=== PATIENT | male | born 1950 | race Caucasian/White ===

== ENCOUNTER 2016-07-02 09:44 | Day surgery (SDC) | payer OTHER ==
[~2016-07-02] VITALS: Ht 176.5 cm; Wt 102.5 kg
[~2016-07-02 09:44] MED LIST: ACAR25TA2 PO; ALBU6.7H INH; ALFU10TA11 PO; ASPI500T15 PO; BUPR100T15 PO; GABA-500 PO; GLIP5POW MC; HYDR-4003 PO; IBUP-1827 PO; LISI10TA PO; METF850T2 PO; OMEP20CA11 PO; SILD100T PO; SIMV10TA4 PO; Sodium Chloride LOK Flush 10 mL Syringe IV PRN; TAMS0.4C29 PO; TRAZ-118 PO; fentaNYL-PF 50 mCg/mL 2 mL Inj IVPUSH PRN
[2016-07-02 10:25] VITALS: BP 126/74; PULSE 56; RESP 16; O2SAT 96
[2016-07-02] MEDS: 0.9% Sodium Chloride 1,000 ML IV PRN ×2 (11:41→12:16)
--- NOTE | 2016-07-02 11:58 | PCM.ENDEGD ---
EGD Date of Service: Jul 02, 2016 Physician Toro Lopez MD Indication for Procedure Reflux Post Procedure Dx & Findings: Gastritis esophagitis prominent duodenal fold Procedure Esophagogastroduodenoscopy PROCEDURE IN DETAIL: The patient was placed in left lateral decubitus position. Bite block was placed. Scope lubricated, placed in posterior pharynx, passed through the cricopharyngeus and esophagus, slowly advanced the entire length of the gastric pouch, pylorus was identified, scope passed through the pylorus and descending portion of duodenum, withdrawn in the antrum, retroflexed upon itself for view of fundus and cardia. Scope was then withdrawn through the oropharynx. Esophagus was unremarkable except for the regular Z line which was biopsied with a cold forcep. Stomach showed mildly irritated atrophic redness consistent with with gastritis in the fundus body antrum. Cardia and pylorus seemed unremarkable. Retroflexion was done. Stomach was easily inflatable in deflatable using air. In the duodenum, the duodenal mucosa showed normal healthy villous structure and folds except there was a 2 cm fold that seemed a little bit prominent. It was biopsied. Impression Irregular Z line Gastritis Prominent duodenal fold Recommendation Await biopsy Continue acid suppression. Presedation Assessment Risks and Benefits Informed consent was obtained from the patient after all risks and benefits including but not limited to drug reaction, infection, pain, bleeding, perforation, as well as alternatives were discussed. Patient monitoring Continuous pulse oximetry, cardiac monitoring, blood pressure monitoring, IV access, and oxygen at 2L per nasal cannula. Periprocedural Fentanyl: Fentanyl 100mcg Incrementally Midazolam: Midazolam 4mg Incrementally Complications There were no periprocedural complications identified. Post Procedure Plan Post Procedure Recommendations 1. Restrict activities today. 2. Resume normal activities in the morning. 3. Resume medications. 4. GERD behavioral modification: - Avoid fatty, acidic, spicy, large meals - Do not lie down after meals - Do not eat or drink anything for at least 2 1/2 hours before going to bed at night - Discontinue tobacco and alcohol - Decrease or avoid caffeine - Avoid chocolate and mints - Decrease weight - Avoid aspirin and non steroidal anti-inflammatory agents (NSAID) such as Aleve, Advil, Mobic, Naproxen, Ibuprofen, etc 5. Add proton pump inhibitor. Take 30 minutes before 1st meal of the day. 6. Patient informed of normal post procedure side effects as bloating, drowsiness, blood streaking in the stool 7. If gastric biopsy reveal H.pylori, continue with appropriate treatment 8. If small bowel biopsy reveals celiac, continue with appropriate treatment 9. Please don't hesitate to call me with any questions Toro Lopez MD Jul 02, 2016 11:58
--- NOTE | 2016-07-02 12:23 | PCM.ENDCOL ---
Colonoscopy Date of Service: Jul 02, 2016 Physician Toro Lopez MD Indication for Procedure Worsening constipation Post Procedure Dx & Findings: Polyps fair prep Procedure Colonoscopy Prep fair Cecum 5 minutes Withdrawal 15 minutes PROCEDURE IN DETAIL: After unremarkable rectal examination Olympus video colonoscope was inserted into patient's anal canal was advanced to cecum. Landmarks identified including the ileocecal valve and appendiceal orifice. Scope was withdrawn systematically. The mucosa of the cecum, ascending, transverse, descending, sigmoid, rectal mucosa lined with whitish, pink, smooth, glistening, normal-appearing mucosa, normal fine branching, underlying vascularity, normal haustra. The patient tolerated procedure and was transported to observation area. In the ascending colon, there was a 1 mm polyp which was resected completely with cold forceps. In the transverse colon, there was a 1 mm polyp which was resected completely using cold forceps. In the descending colon there was another 1 mm polyp which was resected completely using cold forceps. In the sigmoid colon, there was a 3 mm polyp which was resected completely using cold snare. Rectum retroflexion was done which showed hemorrhoids and a canal was inspected carefully and the way out and hemorrhoids noted. Impression Polyp 4 status post complete removal Fair prep Hemorrhoids Recommendation Repeat colonoscopy in 3 years using 2 days of clears. Presedation Assessment Risks and Benefits Informed consent was obtained from the patient after all risks and benefits including but not limited to drug reaction, infection, pain, bleeding, perforation, as well as alternatives were discussed. Patient monitoring Continuous pulse oximetry, cardiac monitoring, blood pressure monitoring, IV access, and oxygen at 2L per nasal cannula. Periprocedural Midazolam: Midazolam 1mg Incrementally Complications There were no periprocedural complications identified. Post Procedure Plan Post Procedure Recommendations 1. Restrict activities today. 2. Resume normal activities in the morning. 3. Resume medications. 4. Patient informed of normal post procedure side effects as bloating, drowsiness, blood streaking in the stool. 5. average risk CRCS. If colon polyps come back as: -Hyperplastic- can repeat colonoscopy in 10 years -Tubular adenoma- repeat colonoscopy in 5 years -Tubulovillous/villous adenoma- repeat colonoscopy in 3 years -If any dysplasia- return to clinic as soon as possible 6. Please don't hesitate to call me with any questions. Toro Lopez MD Jul 02, 2016 12:23
[2016-07-02 12:25] VITALS: BP 141/78; PULSE 52; RESP 16; O2SAT 93
[2016-07-02 12:35] VITALS: BP 126/80; PULSE 51; RESP 16; O2SAT 94
[2016-07-02 12:45] VITALS: BP 116/83; PULSE 53; RESP 16; O2SAT 95
[2016-07-02 13:55] VITALS: BP 163/80; PULSE 78; RESP 16; O2SAT 98
--- NOTE | 2016-07-03 12:13 | PATH ---
SURGICAL PATHOLOGY Attending Physician:Toro Lopez M.D. CASE STATUS: Signed Out PATIENT NAME: MAYE LUEVANO PID: [id number] : 1950 DATE COLLECTED:07/02/2016 20:20 SPECIMEN: 1: Duodenum, Biopsy 2: Gastric, Biopsy 3: Esophagus, Biopsy 4: Colon, Biopsy 5: Colon, Biopsy 6: Colon, Biopsy 7: Colon, Biopsy CLINICAL HISTORY: 1. DUODENUM FOLD BIOPSY 2. GASTRIC BIOPSY 3. GE JUNCTION BIOPSY 4. SIGMOID COLON POLYP 5. ASCENDING COLON POLYP 6. TRANSVERSE COLON POLYP 7. DESCENDING COLON POLYP FINAL DIAGNOSIS: 1. Duodenum Fold Biopsy: Small fragment of normal appearing small bowel. Normal delicate mucosal villi present. Negative for significant inflammation, dysplasia and malignancy. 2. Gastric Biopsy: Diffuse moderate chronic gastritis involving antral and fundic mucosa. Immunohistochemistry for Helicobacter pending, to be reported by addendum. Negative for intestinal metaplasia. Negative for dysplasia and malignancy. 3. Gastroesophageal Junction Biopsy: Squamous mucosa and gastric cardia-type mucosa with mild chronic inflammation. Negative for specialized metaplasia of Jaeger's type esophagus. Negative for dysplasia and malignancy. Eosinophils are not increased. 4. Sigmoid Colon Polyp: Tubular adenoma. 5. Ascending Colon Polyp: Polypoid-shaped fragment of colon mucosa consistent with mucosal polypoid redundancy. Negative for dysplasia and malignancy. 6. Transverse Colon Polyp: Tubular adenoma. 7. Descending Colon Polyp: Polypoid-shaped fragment of colon mucosa consistent with mucosal polypoid redundancy. Negative for dysplasia and malignancy. ICD10 K29.70 GROSS DESCRIPTION: The specimen is received in seven formalin filled containers labeled with the patient's name. 1). The specimen is sublabeled "duodenal fold" and consists of a 0.2 x 0.2 x 0.2 CM portion of tissue which is entirely submitted in cassette 1A. 2). The specimen is sublabeled "gastric" and consists of 2 portions of tissue which aggregate to 0.3 x 0.2 x 0.2 CM. The specimen is entirely submitted in cassette 2A. 3). The specimen is sublabeled "GE junction" and consists of a 0.2 x 0.2 x 0.2 CM portion of tissue which is entirely submitted in cassettes 3A. 4). The specimen is sublabeled "sigmoid colon polyp" and consists of a 0.4 x 0.3 x 0.3 CM portion of tissue which is entirely submitted in cassette 4A. 5). The specimen is sublabeled "ascending colon polyp" and consists of a 0.2 x 0.2 x 0.1 CM portion of tissue which is entirely submitted in cassette 5A. 6). The specimen is sublabeled "transverse colon polyp" and consists of a 0.3 x 0.3 x 0.3 CM portion of tissue which is entirely submitted in cassette 6A. 7). The specimen is sublabeled "descending colon polyp" and consists of a 0.5 x 0.3 x 0.3 CM portion of tissue which is entirely submitted in cassette 7A. 07/02/2016 [facility] ICD-9 CODES: CPT CODES: 1: 04055 2: 91090, 16683 3: 08489 4: 05562 5: 89409 6: 55686 7: 67213 PROCEDURE/ADDENDA: Immunohistochemistry SPI Interpretation 2. Gastric Biopsy: Negative for Helicobacter pylori by immunohistochemistry. Results-Comments {Not Entered} Electronically Signed Out Allan Munoz MD Electronically Signed Out Allan Munoz MD [facility] [address] [place] [address] Technical component performed at [facility], [address], [place], [address]
== END 2016-07-02 23:59 | disposition home or self-care (01) ==
LOC: END 09:44
PROVIDERS: ATTEND Internal Medicine
DX: D12.5 Benign neoplasm of sigmoid colon (principal); D12.3 Benign neoplasm of transverse colon; K63.5 Polyp of colon; K64.9 Unspecified hemorrhoids; K29.50 Unspecified chronic gastritis without bleeding; E11.9 Type 2 diabetes mellitus without complications; K21.0 Gastro-esophageal reflux disease with esophagitis; I10 Essential (primary) hypertension; K59.00 Constipation, unspecified; G47.30 Sleep apnea, unspecified; I25.10 Atherosclerotic heart disease of native coronary artery without angina pectoris; E66.9 Obesity, unspecified; Z68.39 Body mass index [BMI] 39.0-39.9, adult
CPT/HCPCS: 43239; 45380; 45385; 99153; G0500; J2250; J7030